=== PATIENT | female | born 2000 | race Caucasian/White ===

== ENCOUNTER → 2019-08-02 14:22 | Outpatient (CLI) | payer MEDICAID ==
[2019-08-11 22:35] VITALS: BMI 24.8
== END | disposition home or self-care (01) ==
LOC: D.LDO 14:22
PROVIDERS: ATTEND Obstetrics & Gynecology
DX: O26.93 Pregnancy related conditions, unspecified, third trimester (principal); Z3A.37 37 weeks gestation of pregnancy

== ENCOUNTER → 2019-08-05 11:45 | Outpatient (CLI) | payer MEDICAID ==
[2019-08-11 22:35] VITALS: BMI 24.8
== END | disposition home or self-care (01) ==
LOC: D.LDO 11:45
PROVIDERS: ATTEND Obstetrics & Gynecology
DX: O36.5930 Maternal care for other known or suspected poor fetal growth, third trimester, not applicable or unspecified (principal); Z3A.37 37 weeks gestation of pregnancy

== ENCOUNTER 2019-08-11 21:21 | Inpatient (IN) | payer MEDICAID ==
[~2019-08-11] VITALS: Ht 172.7 cm; Wt 73.9 kg
[2019-08-11 22:15] LABS: HEMATOCRIT 32.6 % (36.0-48.0); HEMOGLOBIN 11.4 g/dL (12-16); MCH 30.4 pg (26.0-34.0); MCV 86.9 fL (80.0-100.0); MEAN PLATELET VOLUME 11.7 fL (7.4-10.4); RBC 3.75 10x6/uL (4.00-5.40); RDW 12.8 % (11.5-14.5); WBC 12.6 10x3/uL (4.8-10.8)
[2019-08-11 22:35] VITALS: BP 116/57; Ht 172.7 cm; Wt 73.9 kg
[2019-08-11 22:38] LABS: UDS - AMPHET NEGATIVE QUAL (NEGATIVE); UDS - BARB NEGATIVE QUAL (NEGATIVE); UDS - BENZO NEGATIVE QUAL (NEGATIVE); UDS - COCAINE NEGATIVE QUAL (NEGATIVE); UDS - OPIATE NEGATIVE QUAL (NEGATIVE); UDS - PCP NEGATIVE QUAL (NEGATIVE); UDS - THC NEGATIVE QUAL (NEGATIVE)
--- NOTE | 2019-08-12 14:28 | NUR ---
THIS RN TO ROOM FOR PT CHECK. PT SITTING UP IN BED, INFANT ON LEFT BREAST. PT DENIES PAIN OR ANY NEEDS. SRUx2, CL IN REACH. WILL CONT TO MONITOR.
--- NOTE | 2019-08-12 15:04 | NUR ---
pt calls out with complaint of cramping during , request pain med if possible. Dr Willson on unit, report given, to place orders via [employer].
--- NOTE | 2019-08-12 15:30 | NUR ---
MED GIVEN FOR C/O PAIN AND CRAMPING THAT SHE RATES AT 5/10. PT ALSO STATES THAT SHE HAS VOIDED X 2. TOWELS PROVIDED FOR HER TO SHOWER WHEN SHE IS READY. INFANT IN CRIB AT BEDSIDE. AND SIG OTHER PRESENT. SIDE RAILS UP X 2 WITH PHONE AND CALL LIGHT WITH IN HER REACH.
--- NOTE | 2019-08-12 16:30 | NUR ---
THIS RN TO ROOM FOR PT CHECK. PT NOTED TO BE SLEEPING IN BED ON RIGHT SIDE. RESP EVEN AND UNLABORED. NO DISTRESS NOTED. PT LEFT UNDISTURBED. VISITOR TO ROOM AND GIVES GIFT TO FOB ON BEDSIDE COUCH. PT CONTINUES TO REST. SRUx2, CL IN REACH.
--- NOTE | 2019-08-12 17:45 | NUR ---
THIS RN TO ROOM TO DIRECT VISITORS. PT NOTED TO BE SITTING UP IN BED, HOLDING INFANT. DINNER TRAY NOTED SET UP ON BEDSIDE TABLE. PT DENIES ANY NEEDS AT THIS TIME. SRUx2, CL IN REACH. WILL CONT TO MONITOR.
[2019-08-12 19:52] VITALS: BP 110/61
--- NOTE | 2019-08-12 19:52 | NUR ---
PT COMPLAINING OF 3/10 PAIN. STATES THAT HER PAIN IS TOLERABLE AT THIS TIME. PT FUNDUS FIRM, MIDLINE, 3 BELOW, SCANT BLEEDING, NO CLOTS NOTED. PT STATES THAT ALL HER NEEDS HAVE BEEN MET AT THIS TIME. BED IN LOWEST POSITION, SIDE RAILS UP X2, TELEPHONE AND CALL LIGHT WITHIN REACH.
--- NOTE | 2019-08-13 00:03 | NUR ---
PT IS RESTING IN HER BED. PT STATES THAT HER PAIN IS A 1/10, AND THAT SHE DOES NOT NEED ANY PAIN MEDICATION AT THIS TIME. PT'S FUNDUS IS FIRM, MIDLINE, 2 BELOW, SCANT BLEEDING, NO CLOTS NOTED. PT STATES THAT ALL HER NEEDS HAVE BEEN MET AT THIS TIME, AND THAT SHE WILL CALL OUT IF SHE NEEDS ANYTHING FROM THE RN. BED IN LOWEST POSITION, SIDE RAILS UP X2, TELEPHONE AND CALL LIGHT WITHIN REACH.
[2019-08-13 03:43] VITALS: BP 123/80
--- NOTE | 2019-08-13 03:43 | NUR ---
PT BONDING WITH CHILD. VSS. PT COMPLAINS OF 3/10 PAIN TO ABDOMEN, SCHEDULED TYLENOL ADMINISTERED. PT FUNDUS FIRM, MIDLINE, 2 BELOW. SCANT RUBRA BLEEDING WITH NO CLOTS NOTED. PT PROVIDED WITH ICE WATER. PT VERBALIZES ALL HER NEEDS HAVE BEEN MET. PT TO ATTEMPT TO BREASTFEED AT THIS TIME. BED AT LOWEST POSITION. SIDE RAILS UP X2. TELEPHONE AND CALL LIGHT WITHIN REACH. FOB AT BEDSIDE WITH PT.
[2019-08-13 06:08] LABS: RAPID PLASMA REAGIN Non Reactive (Non Reactive)
--- NOTE | 2019-08-13 07:03 | NUR ---
ASSUMED CARE OF THIS PATIENT AT THIS TIME. SITTING UP IN BED WITH VISITOR SITTING NEXT TO HER. INFANT IN ARMS. DENIES PAIN OR NEEDING ANYTHING AT THIS TIME. SAYS SHE RECEIVED TDAP AND FLU VACCINE DURING . INFANT. A+ RUBELLA IMMUNE. GBS NEG. 12 AUG 2019. WILL COMPLETE SHIFT ASSESSMENT AFTER BREAKFAST. SIDE RAILS UP X 2, CALL LIGHT IN REACH. TO CALL IF ANYTHING IS NEEDED.
--- NOTE | 2019-08-13 08:45 | NUR ---
SHIFT ASSESSMENT COMPLETED. DENIES NEEDING ANYTHING AND FOB REMAIN IN ROOM. ANTICIPATE DC HOME TODAY. NON-SMOKER.
[2019-08-13 08:49] VITALS: BP 111/67
--- NOTE | 2019-08-13 10:21 | NUR ---
AMBULATING IN ROOM. DENIES NEEDING ANYTHING. HAS RECEIVED DC ORDERS. WAITING ON OB MD TO MAKE ROUNDS. TO CALL IF ANYTHING IS NEEDED.
--- NOTE | 2019-08-13 12:21 | NUR ---
SITTING UP IN BED TALKING TO VISITOR AND GETTING READY TO HOLD INFANT. INFORMED THAT DR GAMA IS ON THE WAY IN WITH PLANS TO DC HOME. READY TO GO HOME. DENIES NEEDING ANYTHING. TO CALL IF ANYTHING IS NEEDED.
--- NOTE | 2019-08-13 13:10 | NUR ---
DESIRES DEPO PROVERA FOR BC. HAS USED IN PAST. VERBAL AND WRITTEN INFORMATION GIVEN ON MEDICATION ADMINISTRATION, SIDE AFFECTS, AND RECEIVING NOW VS AT 6 WEEKS /VARIANCE IN RECOMMENDATIONS. DISCUSSED INJECTIONS SITES. DEPO-PROVERAL 150 MG GIVEN IM IN RIGHT DELTOID WITHOUT DIFFICULTY. INSTRUCTED TO F/U FOR NEXT INJECTION 13 WEEKS FROM TODAY. TO CALL THURSDAY TO SCHEDULE 4-6 WK CHECK UP AND RECOMMEND MAKING F/U APPOINTMENT FOR DEPO AT THAT TIME. REVIEWED DC INSTRUCTIONS TO INCLUDE ROUTINE PP CARE, PP DEPRESSION, S&S INFECTION, DANGER SIGNS, BREASTCARE/ AND FOLLOW-UP. NO SPECIFIC QUESTIONS. WILL DC TO CAR VIA WHEELCHAIR WHEN READY.
--- NOTE | 2019-08-13 13:40 | NUR ---
DC'D HOME VIA WHEELCHAIR. FOB DRIVING. ALL BELONGINGS REMOVED FROM ROOM. HAS DC INSTRUCTIONS. PT WILL CALL THURSDAY TO SCHEDULE F/U APPOINTMENT.
== END 2019-08-13 13:40 | disposition home or self-care (01) | DRG 807 ==
LOC: D.LD 21:21
PROVIDERS: ADMIT Obstetrics & Gynecology; ATTEND Obstetrics & Gynecology
PROC: 10E0XZZ Delivery of Products of Conception, External Approach (ICD-10-PCS; principal; 2019-08-12)
PROC: 0HQ9XZZ Repair Perineum Skin, External Approach (ICD-10-PCS; 2019-08-12)
DX: O36.5930 Maternal care for other known or suspected poor fetal growth, third trimester, not applicable or unspecified (principal); Z37.0 Single live birth; Z3A.38 38 weeks gestation of pregnancy; O70.0 First degree perineal laceration during delivery